=== PATIENT | female | born 1965 | race Caucasian/White ===

== ENCOUNTER 2017-02-24 23:08 | Emergency (ER) | payer OTHER ==
[~2017-02-24] VITALS: Ht 157.5 cm; Wt 72.6 kg
[2017-02-24 23:28] VITALS: BP 139/88
== END 2017-02-25 01:18 | disposition home or self-care (01) ==
LOC: ER 23:16
DX: J02.9 Acute pharyngitis, unspecified (principal); Z88.5 Allergy status to narcotic agent
CPT/HCPCS: 87880; 99283; A4606; Z7610; 86403-TC; 87070-TC